=== PATIENT | female | born 2000 | race Caucasian/White ===

== ENCOUNTER → 2020-02-07 10:05 | Outpatient (CLI) | payer OTHER, SELFPAY ==
--- NOTE | ~2020-02-07 | MR_ITS ---
EXAMINATION: MR cervical spine wo con EXAM DATE: 02/07/2020 10:46 INDICATION: Neck pain, bilateral shoulder pain, symptoms 2 years. TECHNIQUE: Multi-sequential, multiplanar MR images of the cervical spine were obtained without contra st. Axial T2, axial T2 MERGE sequence. Sagittal T1, T2, T2 fat saturation images also obtained. Th ere is no prior study for comparison. FINDINGS: Minimal loss of the C5-6 disc height. The vertebral bodies are aligned in the AP dimension . The spinal cord signal intensity and intrinsic morphology is normal. Cervicomedullary junction is n ormal in appearance. There are no suspicious marrow signal abnormalities. Paraspinal soft tissue is u nremarkable. Level by level evaluation: C2-C3: Disc does not extend beyond the endplate margin. Uncovertebral joint arthropathy: None. Facet joint arthropathy: Mild right. Neural foraminal stenosis: No stenosis. Central canal stenosis: No stenosis. C3-C4: Disc does not extend beyond the endplate margin. Uncovertebral joint arthropathy: Mild bilateral. Facet joint arthropathy: Minimal bilateral. Neural foraminal stenosis: Mild right. Central canal stenosis: No stenosis. C4-C5: Disc does not extend beyond the endplate margin. Uncovertebral joint arthropathy: Mild bilateral. Facet joint arthropathy: Minimal bilateral. Neural foraminal stenosis: Mild left. Central canal stenosis: No stenosis. C5-C6: Disc does not extend beyond the endplate margin. Uncovertebral joint arthropathy: Mild bilateral. Facet joint arthropathy: Minimal bilateral. Neural foraminal stenosis: No stenosis. Central canal stenosis: No stenosis. C6-C7: Disc does not extend beyond the endplate margin. Uncovertebral joint arthropathy: Minimal bilateral. Facet joint arthropathy: Minimal bilateral. Neural foraminal stenosis: No stenosis. Central canal stenosis: No stenosis. C7-T1: Disc does not extend beyond the endplate margin. Uncovertebral joint arthropathy: None. Facet joint arthropathy: None. Neural foraminal stenosis: No stenosis. Central canal stenosis: No stenosis. IMPRESSION: 1. Minimal cervical spondylosis. No stenosis. Reviewed, dictated and finalized at location A.
== END ==
DX: M54.2 Cervicalgia (principal); M47.812 Spondylosis without myelopathy or radiculopathy, cervical region
CPT/HCPCS: 72141